=== PATIENT | male | born 1985 | race Hispanic/Latino ===

== ENCOUNTER 2019-08-31 04:27 | Emergency (ER) | payer SELFPAY ==
[2019-08-31 04:59] LABS: #Basophils 0.1 thou/uL (0.0-0.2); #Eosinphils 0.3 thou/uL (0.0-0.7); #Lymphocytes 2.9 thou/uL (1.20-3.40); #Monocytes 1.2 thou/uL (0.11-0.59); #Neutrophils 5.9 thou/uL (1.40-6.50); %Basophils 0.6 % (0.0-1.0); %Eosinophils 2.9 % (0.0-10.0); %Lymphocytes 28.1 % (21.0-51.0); %Monocytes 11.3 % (0.0-10.0); %Neutrophils 57.1 % (42.0-75.0); Hemoglobin 15.4 g/dL (14.0-18.0); Mean Corpuscular HGB CONC 32.5 g/dL (32.0-36.0); Mean Corpuscular Hemoglobin 30.3 pg (27.0-31.0); Mean Corpuscular Volume 93.1 fL (78.0-98.0); Mean Platelet Volume 10.8 fL (7.4-10.4); Platelet Count 147 thou/uL (130-400); Red Blood Cell (RBC) Count 5.08 mill/uL (4.70-6.10); White Blood Cell (WBC) Count 10.4 thou/uL (4.8-10.8)
[2019-08-31 05:24] LABS: ALT (SGPT) 75 U/L (8-55); AST (SGOT) 55 U/L (5-34); Albumin 4.1 g/dL (3.5-5.0); Alkaline Phosphatase 87 U/L (40-110); Anion Gap 12 mmol/L (10-20); BUN (Urea Nitrogen) 15 mg/dL (8.9-20.6); Bilirubin, Total 0.5 mg/dL (0.2-1.2); Calc. Creatinine Clearance 0 mL/min (70-130); Calcium 9.2 mg/dL (7.8-10.44); Carbon Dioxide 27 mmol/L (22-29); Chloride 106 mmol/L (98-107); Estimated GFR-MDRD Greater than 90; Globulin 3.1 g/dL (2.4-3.5); Glucose 112 mg/dL (70-105); Lipase 22 U/L (8-78); Potassium 3.7 mmol/L (3.5-5.1); Protein, Total 7.2 g/dL (6.0-8.3); Sodium 141 mmol/L (136-145)
[2019-08-31] MEDS ORDERED: Famotidine 20 MG TAB ONE (06:09)
--- NOTE | 2019-08-31 07:59 | ULT ---
PRELIMINARY REPORT/[facility]/EMERGENCY AFTER HOURS PROCEDURE EXAM: US Abdomen Limited, Right Upper Quadrant. CLINICAL HISTORY: RUQ pain x 1 day, N/V COMPARISON: None provided. FINDINGS: LIVER: Enlarged. Echogenic parenchyma. GALLBLADDER: No gallstones. No wall thickening or pericholecystic fluid. Technologist reports a positive sonographic Voss sign. COMMON BILE DUCT: No biliary ductal dilatation. PANCREAS: Visualization is obscured by overlying bowel gas. RIGHT KIDNEY: No hydronephrosis. IMPRESSION: 1. No evidence of cholelithiasis, acute cholecystitis, or biliary ductal dilatation. 2. Findings suggesting hepatic steatosis. ELECTRONICALLY SIGNED BY: Kishan Gillespie MD August 31, 2019 5:47:54 AM CDT FINAL REPORT RIGHT UPPER QUADRANT ULTRASOUND: I agree with the preliminary report given by Dr. Kishan Gillespie of [facility]. POS: MIGUEL
== END 2019-08-31 07:05 | disposition home or self-care (01) ==
LOC: ERS 04:27
DX: R10.11 Right upper quadrant pain (principal)
CPT/HCPCS: 36415; 76705; 80053; 83690; 85025

== ENCOUNTER 2024-02-19 08:14 | Emergency (ER) | payer SELFPAY | END 2024-02-19 08:48 | disposition home or self-care (01) | LOC: ERS 08:14 | DX: H60.92 Unspecified otitis externa, left ear (principal); F17.290 Nicotine dependence, other tobacco product, uncomplicated | CPT/HCPCS: 99282 ==

== ENCOUNTER 2025-01-28 14:42 | Emergency (ER) | payer SELFPAY ==
[2025-01-28 15:50] LABS: #Basophils Less than 0.03 10x3/uL (0.0-0.2); #Eosinophils 0.18 10x3/uL (0.0-0.7); #Monocytes 0.77 10x3/uL (0.11-0.59); #Neutrophils 6.64 10x3/uL (1.40-6.50); %Basophils 0.2 % (0.0-1.0); %Eosinophils 1.8 % (0.0-10.0); %Lymphocytes 22.8 % (21.0-51.0); %Monocytes 7.8 % (0.0-10.0); %Neutrophils 67.1 % (42.0-75.0); Hematocrit 42.6 % (42.0-52.0); Hemoglobin 13.6 g/dL (14.0-18.0); Mean Corpuscular Hemoglobin 28.5 pg (27.0-31.0); Mean Corpuscular Volume 89.1 fL (78.0-98.0); Platelet Count 189 10x3/uL (130-400); Red Blood Cell (RBC) Count 4.78 mill/uL (4.70-6.10); White Blood Cell (WBC) Count 9.89 10x3/uL (4.8-10.8)
[2025-01-28 16:04] LABS: ALT (SGPT) 60 U/L (Less than 45); AST (SGOT) 77 U/L (11-34); Albumin 3.9 g/dL (3.1-4.5); Alkaline Phosphatase 100 U/L (40-110); Anion Gap 11 mmol/L (10-20); BUN (Urea Nitrogen) 14 mg/dL (8.9-20.6); Bilirubin, Total 0.5 mg/dL (0.3-1.2); Calc. Creatinine Clearance 0 mL/min (70-130); Calcium 9.3 mg/dL (7.8-10.44); Carbon Dioxide 27 mmol/L (22-29); Chloride 105 mmol/L (98-107); Globulin 3.9 g/dL (2.4-3.5); Glucose 119 mg/dL (70-105); Lipase 18 U/L (8-78); Potassium 3.5 mmol/L (3.5-5.1); Sodium 139 mmol/L (136-145)
[2025-01-28 16:33] LABS: Bacteria/HPF None Seen HPF (None Seen); CAUTI Indications for Culture Pelvic or flank pain; Glucose, Urine (Dipstick) Normal (Negative); Leukocyte Negative Leu/uL (Negative); Protein, Urine (Dipstick) Negative (Neg-Trace); Specific Gravity, Urine 1.026 (1.002-1.036); WBC/HPF 0-3 HPF (0-3)
[2025-01-28 16:45] LABS: Urine Culture Reflex No No
[2025-01-28] MEDS ORDERED: Ketorolac Tromethamine 30 MG (1 mL) VIAL ONE (17:32)
[2025-01-28] MEDS ORDERED: Ondansetron PF 4 MG/2 ML Vial ONE (17:33)
[2025-01-28] MEDS ORDERED: Famotidine/PF 20 mg/2ml Vial ONE (17:34)
== END 2025-01-28 20:53 | disposition home or self-care (01) ==
LOC: ERS 14:42
DX: R10.13 Epigastric pain (principal); E86.0 Dehydration; F17.290 Nicotine dependence, other tobacco product, uncomplicated
CPT/HCPCS: 36415; 71045; 76705; 80053; 81001; 82550; 83605; 83690; 84484; 85025; 93005; 96374; 96375; 96376; J1308; J1885; J2405; J3010; Q0162